=== PATIENT | male | born 1990 | race Caucasian/White ===

== ENCOUNTER 2016-05-11 11:13 | Emergency (ER) | payer SELFPAY ==
[~2016-05-11] VITALS: Ht 188 cm; Wt 130.0 kg
[~2016-05-11 11:13] MED LIST: IBUP800T23 PO; MAGICPED SWISH-SWAL
[2016-05-11 11:22] VITALS: BP 141/83; PULSE 80; RESP 16; TEMP 98; O2SAT 96
--- NOTE | 2016-05-11 11:46 | PD ---
HPI Chief Complaint: Back/ Neck Pain or Injury Time Seen by Provider: 11:41 Travel History International Travel<30 days: No Contact w/Intl Traveler<30days: No Traveled to known affect area: No History of Present Illness HPI Patient isn't complaining of right-sided low back radiating down his right lower extremity that began 4 days ago after having an adjustment by chiropractor. Patient describes the pain as feeling similar to sciatica pain he 's had in the past. Patient has been having a burning like sensation that radiates into his right lower extremity. Patient denies anything making it better. Patient has second adjustment yesterday that did not seem to help his symptoms at all. Patient denies any fevers, loss of bowel or bladder, direct trauma, or numbness or tingling anywhere. PFSH Past Medical History Medical History: Denies Significant Hx Past Surgical History Surgical History: No Previous Surgery Social History Alcohol Use: No Tobacco Use: Yes (05/06) Substance Use: No Allergies-Medications (Allergen,Severity, Reaction): Coded Allergies: No Known Allergies (Unverified , 05/11/16) Reported Meds & Prescriptions Reported Meds & Active Scripts Active Robaxin (Methocarbamol) 750 Mg Tab 750 Mg PO Q8HR PRN Prednisone (21) 10 mg tab Dose Pack (Prednisone) 10 Mg Pack 10 Mg PO DIRECTED Review of Systems Except as stated in HPI: all other systems reviewed are Neg Physical Exam Narrative GENERAL: Well-developed, overly nourished, in no acute distress, and non-ill appearing. SKIN: Warm and dry. HEAD: Atraumatic. Normocephalic. EYES: Pupils equal and round. EOMI. No scleral icterus. No injection or drainage. ENT: No nasal bleeding or discharge. Mucous membranes pink and moist. NECK: Trachea midline. Supple. No nuclear rigidity. CARDIOVASCULAR: Regular rate and rhythm. No murmur appreciated. No papilledema. Dorsal pulses 2+ intact bilaterally. RESPIRATORY: No accessory muscle use. No respiratory distress. GASTROINTESTINAL: Abdomen soft, non-tender, nondistended. Hepatic and splenic margins not palpable. No pulsatile mass. MUSCULOSKELETAL: No obvious deformities. No clubbing. No cyanosis. No edema. Full range of motion. No pain or crepitus over midline lumbar spine. Patient reports tenderness palpation near right SI joint. Straight leg test negative bilaterally. Strength 5 out of 5 equal bilateral lower extremities with plantar and dorsiflexion. Sensation intact over first web space in bilateral lower extremities. NEUROLOGICAL: Awake and alert. No obvious cranial nerve deficits. Motor grossly within normal limits. Normal speech. PSYCHIATRIC: Appropriate mood and affect; insight and judgment normal. Data Data Last Documented VS Vital Signs Date Time Temp Pulse Resp B/P Pulse Ox O2 Delivery O2 Flow Rate FiO2 05/11/16 11:22 98.0 80 16 141/83 96 Room Air MDM Medical Decision Making Medical Screen Exam Complete: Yes Emergency Medical Condition: Yes Differential Diagnosis Fracture, strain, sciatica, contusion, other Narrative Course The patient presented complaining of back pain with radiation down leg. There was no history of recent fall or trauma. There was no evidence to support genitourinary etiology. There is also no evidence to suggest vascular pathology such as AAA dissection. No fevers or other evidence to suspect infectious processes, abscess, osteomyelitis etc. The patients neurological exam is normal with normal motor and sensory. There is no saddle paresthesias reported and no bowel or bladder incontinence or retention. I suspect the pain is mechanical in nature with sciatica. Clinical suspicion, plan of care and management was discussed with the patient. The patient was instructed to follow up with their health care provider. The patient was also instructed to return if the pain worsened, changed, or developed weakness or bowel or bladder trouble. The patient agreed with plan. Patient in no obvious distress upon re-evaluation. Patient was asked if they wanted to speak to my attending, which the patient did not wish to do at this time. Any questions/concerns in reference to patient diagnosis/condition discussed and clarified prior to patient's discharge. Reinforced sheer importance of close follow up with patient's primary physician or primary care clinic. Instructed patient to return to ED immediately, if symptoms return/ worsen. Pt showed understanding of above instructions. Further instructions and recommendations were detailed in discharge paperwork. Pt ambulated without difficulty out of ED at discharge. Diagnosis Primary Impression: Sciatica of right side Patient Instructions: General Instructions, Sciatica (ED) Additional Instructions: Follow-up with your primary care physician and/or orthopedic in 2-3 days for reevaluation. Take all medication as prescribed. Return to the emergency department if symptoms get worse. Med/Other Pt SpecificInfo: Prescription(s) given Scripts Methocarbamol (Robaxin)750 Mg [id number] Mg PO Q8HR PRN (MUSCLE PAIN) #12 TAB Ref 0 Prov:Kraig Morfin MD 05/11/16 Prednisone (21) 10 mg tab Dose Pack 10 Mg Pack10 Mg PO DIRECTED #1 DSPK Ref 0 Prov:Kraig Morfin MD 05/11/16 Disposition: 01 DISCHARGE HOME Condition: Stable Lucas Best May 11, 2016 11:46
[2016-05-11] MEDS ORDERED: PRED10PA PO (11:48)
[2016-05-11] MEDS ORDERED: ROBA750T PO (11:48)
== END 2016-05-11 12:02 | disposition home or self-care (01) ==
LOC: NEPB 11:13
DX: M54.31 Sciatica, right side (principal); F17.210 Nicotine dependence, cigarettes, uncomplicated
CPT/HCPCS: 99283

== ENCOUNTER 2016-05-23 11:46 | Emergency (ER) | payer SELFPAY ==
[~2016-05-23] VITALS: Ht 188 cm; Wt 128.0 kg
[~2016-05-23 11:46] MED LIST changes: -IBUP800T23 PO; -MAGICPED SWISH-SWAL; +PRED10PA PO; +ROBA750T PO
[2016-05-23 11:48] VITALS: BP 180/82; PULSE 80; RESP 15; TEMP 97.9; O2SAT 98
--- NOTE | 2016-05-23 13:04 | PD ---
HPI Chief Complaint: Oral / Dental Pain or Problem Time Seen by Provider: 13:03 Travel History International Travel<30 days: No Contact w/Intl Traveler<30days: No Traveled to known affect area: No History of Present Illness HPI 26-year-old male presents to ED for evaluation 2 day history of dental pain. Patient states that he has multiple broken teeth and cavities and this pain has been present for months but worsened over the last 2 days. He denies fever or chills, inability to open and close the mouth, difficulty swallowing secretions , recent cold or flu symptoms. He endorses increased incidence of sneezing with clear rhinorrhea for the past month. Denies chronic health proms, takes no daily medications. NKDA. PFSH Social History Alcohol Use: No Tobacco Use: Yes (05/06) Substance Use: No Allergies-Medications (Allergen,Severity, Reaction): Coded Allergies: No Known Allergies (Unverified , 05/23/16) Reported Meds & Prescriptions Reported Meds & Active Scripts Active Ibuprofen 800 Mg Tab 800 Mg PO Q8H PRN Lore-D 24 Hour Allergy (Fexofenadine-Pseudoephedrine ER 24 HR) 180-240 Krysta 1 Tab PO DAILY Amoxicillin 875 Mg Tab 875 Mg PO BID Magic Mouthwash Adult Liq (Multi-Ingredient Mouthwash/Gargle) 120 Ml Susp 5 Ml SWISH-SWAL ACHS Each 5 mL contains: Nystatin 200,000 units, Diphenhydramine 4.25 mg, Viscous Lidocaine 10 mg, Ma syrup 0.8 mL Review of Systems Except as stated in HPI: all other systems reviewed are Neg Physical Exam Narrative GENERAL: Well-nourished, well-developed nontoxic appearing white male in no acute distress. SKIN: Warm and dry. HEAD: Normocephalic. Atraumatic. EYES: No scleral icterus. No injection or drainage. PERRLA. EOMI. ENT: Pearly mckeon tympanic membranes bilaterally. Nasal mucosa is moist, bluish , boggy. No tenderness to palpation of the facial sinuses. Oropharynx without erythema, edema or exudate. Airway patent. The floor of the mouth is soft. Uvula midline. DENTAL: Multiple loose, chipped teeth with dental caries. Area of concern is tooth #9 which is fractured with the pulp exposed. The surrounding gumline is mildly erythematous and tender to palpation. No exudates. NECK: Supple, trachea midline. No JVD or lymphadenopathy. CARDIOVASCULAR: Regular rate and rhythm without murmurs, gallops, or rubs. No carotid bruits. 2+ DP and radial pulses bilaterally. RESPIRATORY: Breath sounds clear and equal bilaterally. No accessory muscle use. GASTROINTESTINAL: Abdomen soft, non-tender, nondistended. + Bowel sounds MUSCULOSKELETAL: No cyanosis, or edema. Full, active range of motion. Strength 5/5. Neurovascularly intact. BACK: Nontender without obvious deformity. No CVA tenderness. Data Data Last Documented VS Vital Signs Date Time Temp Pulse Resp B/P Pulse Ox O2 Delivery O2 Flow Rate FiO2 05/23/16 11:48 97.9 80 15 180/82 98 MDM Medical Decision Making Medical Screen Exam Complete: Yes Emergency Medical Condition: Yes Differential Diagnosis Dental caries versus dental fracture versus dental abscess versus seasonal allergies versus other Narrative Course 26-year-old male presents to ED for evaluation 2 day history of dental pain. Patient states that he has multiple broken teeth and cavities and this pain has been present for months but worsened over the last 2 days. He denies fever or chills, inability to open and close the mouth, difficulty swallowing secretions , recent cold or flu symptoms. He endorses increased incidence of sneezing with clear rhinorrhea for the past month. Vitals reviewed. Physical exam reveals boggy, bluish nasal mucosa as well as terrible overall dentition. Multiple broken, loose teeth and dental caries. Area of concern is tooth #9. The surrounding mucosa is mildly erythematous and tender, no exudates noted. Patient was prescribed amoxicillin, Lore, Magic mouthwash, ibuprofen. He is instructed to take all medications as prescribed. He was provided a list of dental resources in the area. He is currently enrolled in the [facility] [employer] correctional services program. I signed paperwork that I had treated him today. He indicated understanding of the instructions and was amenable to plan of care. He is stable and discharged home. Diagnosis Primary Impression: Dental caries Additional Impression: Seasonal allergic rhinitis Qualified Code: J30.2 - Seasonal allergic rhinitis, unspecified allergic rhinitis trigger Referrals: Dentist Patient Instructions: Allergic Rhinitis (ED), Dental Caries (ED), General Instructions Additional Instructions: Rest, hydrate. Take all antibiotics as prescribed, even if symptoms resolve. Trial antihistamines for 14 days, if this improves sneezing and runny nose continue with OTC medications. Magic mouthwash as directed. Ibuprofen as directed. Follow up with a dentist as discussed. Return to the ED for any urgent or emergent medical condition. Med/Other Pt SpecificInfo: Prescription(s) given Scripts Ibuprofen 800 Mg [id number] Mg PO Q8H PRN (Pain/Inflammation) #15 TAB Ref 0 Prov:Valery Carlson DO 05/23/16 Fexofenadine-Pseudoephedrine ER 24 HR (Lore-D 24 Hour Allergy)180-240 Taber1 Tab PO DAILY #15 TAB Ref 0 Prov:Valery Carlson DO 05/23/16 Amoxicillin 875 Mg [id number] Mg PO BID #20 TAB Ref 0 Prov:Valery Carlson DO 05/23/16 Anqxigau-Cpvqnvfezrbfctt-Ecvlfrjmn Liq (Magic Mouthwash Adult Liq)120 Ml Susp5 Ml SWISH-SWAL ACHS #120 ML Ref 0 Each 5 mL contains: Nystatin 200,000 units, Diphenhydramine 4.25 mg, Viscous Lidocaine 10 mg, Ma syrup 0.8 mL Prov:Valery Carlson DO 05/23/16 Disposition: 01 DISCHARGE HOME Condition: Stable Debbie Hoang May 23, 2016 13:04
[2016-05-23] MEDS ORDERED: FEXO1TAB97 PO ×2 (13:18→13:23)
[2016-05-23] MEDS ORDERED: IBUP800T23 PO ×2 (13:18→13:23)
[2016-05-23] MEDS ORDERED: AMOX875T PO ×2 (13:18→13:23)
[2016-05-23] MEDS ORDERED: MAGICADU2 SWISH-SWAL ×2 (13:18→13:23)
== END 2016-05-23 13:35 | disposition home or self-care (01) ==
LOC: NETRI 11:46
DX: K02.9 Dental caries, unspecified (principal); J30.2 Other seasonal allergic rhinitis; Z72.0 Tobacco use
CPT/HCPCS: 99282